=== PATIENT | female | born 2000 ===

== ENCOUNTER 2020-10-19 20:41 | Emergency (ER) | payer MEDICAID ==
[2020-10-19 20:52] VITALS: BP 135/98; PULSE 87
[2020-10-19 21:28] LABS: ANION GAP 18.4 mEq/L (7-13); CHLORIDE,CL 103 mmol/L (98-107); SODIUM,NA 137 mmol/L (136-145)
--- NOTE | 2020-10-19 21:39 | EDM.PDOC ---
ED HPI GENERAL MEDICAL PROBLEM - General Chief Complaint: Back Pain or Injury Stated Complaint: AMBULANCE Time Seen by Provider: 10/19/20 20:45 Source of Information: Reports: Patient History Limitations: Reports: No Limitations - History of Present Illness INITIAL COMMENTS - FREE TEXT/NARRATIVE: ED via [facility] with report of slipping from bathchir to floor, Patient and healthcare or medical denied loss of consciousness. Witness ed fall. [facility] initially c/o back and rib pain. Patient from Detention. - Related Data Allergies Allergy/AdvReac Type Severity Reaction Status Date / Time Dairy Products Allergy Diarrhea Verified 11/23/14 17:02 Latex, Natural Rubber Allergy Rash Verified 11/23/14 17:02 high fructose corn syrup Allergy Diarrhea Uncoded 11/23/14 17:02 Home Meds: Home Meds Naproxen 250 mg PO TID PRN 11/23/14 [History] Calcium Carbonate [Calcium] 600 mg PO 10/19/20 [History] Cholecalciferol (Vitamin D3) [Vitamin D3] 2,000 unit PO 10/19/20 [History] FLUoxetine [PROzac] 40 mg PO DAILY 10/19/20 [History] Ferrous Sulfate 325 mg PO 10/19/20 [History] norethindrone ac-eth estradioL [Loestrin 21 1.5-30 Tablet] 10/19/20 [History] polyethylene glycoL 3350 [MiraLAX] 17 gm PO DAILY 10/19/20 [History] Past Medical History HEENT History: Reports: Impaired Vision Other Respiratory History: brain injury at 18 months. Other Musculoskeletal History: alot of orthopedic problems. has had hip surgery, heel surgery and needs knee surgery Neurological History: Reports: Brain Injury, Cerebral Palsy Other Neuro History: paralysis left side. Other Immunologic History: misses alot of school with respiratory illnesses Social & Family History - Family History Family Medical History: No Pertinent Family History - Tobacco Use Tobacco Use Status *Q: Never Tobacco User Second Hand Smoke Exposure: No - Caffeine Use Caffeine Use: Reports: None - Recreational Drug Use Recreational Drug Use: No ED ROS GENERAL - Review of Systems Review Of Systems: Comprehensive ROS is negative, except as noted in HPI. ED EXAM,LOWER BACK PAIN/INJURY - Physical Exam Exam: See Below Exam Limited By: No Limitations General Appearance: Alert, No Apparent Distress, Obese Eye Exam: Bilateral Eye: EOMI, PERRL Ears: Normal External Exam, Hearing Grossly Normal Nose: Normal Inspection Throat/Mouth: Normal Inspection Head: Atraumatic, Normocephalic Neck: Normal Inspection Respiratory/Chest: No Respiratory Distress, Lungs Clear, Normal Breath Sounds Cardiovascular: Normal Peripheral Pulses, Regular Rate, Rhythm GI/Abdominal: Normal Bowel Sounds, Soft Back Exam: Other (generalized tenderness deep palpation) Neurological: Alert, Normal Mood/Affect, Other (baseline defecits unchanged. TX's with amna lift. Developmental delay). No: Oriented x 3 (person palce) Psychiatric: Normal Affect Skin Exam: Warm, Dry Course - Vital Signs Last Recorded V/S: Last Vital Signs Temp 97.6 F 10/19/20 20:44 Pulse 87 10/19/20 20:44 Resp 22 H 10/19/20 20:44 BP 135/98 H 10/19/20 20:44 Pulse Ox 98 10/19/20 20:44 - Orders/Labs/Meds Labs: Laboratory Tests 10/19/20 10/19/20 Range/Units 21:00 21:00 WBC 15.4 H (5.0-10.0) 10^3/uL RBC 5.27 (4.2-5.4) 10^6/uL Hgb 15.1 (12.0-16.0) g/dL Hct 45.1 (37.0-47.0) % MCV 85.6 (80-100) fL MCH 28.7 (27.0-34.0) pg MCHC 33.5 (33.0-35.0) g/dL Plt Count 271 (150-450) 10^3/uL Neut % (Auto) 67.4 (42.2-75.2) % Lymph % (Auto) 24.0 (20.5-50.1) % Union % (Auto) 6.7 (2-8) % Eos % (Auto) 1.7 (1.0-3.0) % Baso % (Auto) 0.2 (0.0-1.0) % Sodium 137 (136-145) mmol/L Potassium 4.4 (3.5-5.1) mmol/L Chloride 103 (98-107) mmol/L Carbon Dioxide 20 L (21-32) mmol/L Anion Gap 18.4 H (7-13) mEq/L BUN 9 (7-18) mg/dL Creatinine 0.45 L (0.55-1.02) mg/dL Est Cr Clr Drug Dosing TNP Estimated GFR (MDRD) > 60 BUN/Creatinine Ratio 20.0 (No establ ref range) Glucose 88 (70-99) mg/dL Calcium 8.4 L (8.5-10.1) mg/dL Total Bilirubin 0.3 (0.2-1.0) mg/dL AST 40 H (15-37) U/L ALT 85 H (14-59) U/L Alkaline Phosphatase 95 (46-116) U/L Total Protein 7.3 (6.4-8.2) g/dL Albumin 2.9 L (3.4-5.0) g/dL Globulin 4.4 Albumin/Globulin Ratio 0.66 HCG, Qual Negative Departure - Departure Time of Disposition: 22:51 Disposition: Home, Self-Care 01 Condition: Good Clinical Impression: Muscle strain Fall Qualifiers: Encounter type: initial encounter Qualified Code(s): W19.XXXA - Unspecified fall, initial encounter - Discharge Information *PRESCRIPTION DRUG MONITORING PROGRAM REVIEWED*: No *COPY OF PRESCRIPTION DRUG MONITORING REPORT IN PATIENT ROGER: No Instructions: Muscle Strain Referrals: Samantha Benjamin NP [Primary Care Provider] - Forms: ED Department Discharge Additional Instructions: tylenol 500mg every 4 hours as needed for discomfort Resume home medications follow up if change in symptoms diet as tolerated Sepsis Event Note (ED) - Evaluation Sepsis Screening Result: No Definite Risk
--- NOTE | 2020-10-19 22:30 | CT ---
PROCEDURE INFORMATION: Exam: CT Cervical Spine Without Contrast Exam date and time: 10/19/2020 9:47 PM Age: 19 years old Clinical indication: Other: Fall/pain; Additional info: Fell off bath chair, C/O pain TECHNIQUE: Imaging protocol: Computed tomography images of the cervical spine without contrast. Radiation optimization: All CT scans at this facility use at least one of these dose optimization techniques: automated exposure control; mA and/or kV adjustment per patient size (includes targeted exams where dose is matched to clinical indication); or iterative reconstruction. COMPARISON: CT Head wo Cont 04/17/2014 9:57 PM FINDINGS: Bones/joints: There is normal vertebral body alignment. There are normal vertebral body heights. The dens is intact. The lateral masses of C1 are symmetric. No fracture. Discs/Spinal canal/Neural foramina: Craniocervical articulation is normal. Atlantodental interval and prevertebral soft tissues are normal. Disc spaces are symmetric and maintained. Lungs: Lung apices are normal. Soft tissues: Unremarkable. IMPRESSION: No fracture.
--- NOTE | 2020-10-19 22:31 | CT ---
PROCEDURE INFORMATION: Exam: CT Head Without Contrast Exam date and time: 10/19/2020 9:47 PM Age: 19 years old Clinical indication: Other: Fall/pain; Additional info: Fell off bath chair, C/O pain TECHNIQUE: Imaging protocol: Computed tomography of the head without contrast. Radiation optimization: All CT scans at this facility use at least one of these dose optimization techniques: automated exposure control; mA and/or kV adjustment per patient size (includes targeted exams where dose is matched to clinical indication); or iterative reconstruction. COMPARISON: CT Head wo Cont 04/17/2014 9:57 PM FINDINGS: Brain: Stable right MCA distribution encephalomalacia. No acute infarct or hemorrhage. Cerebral ventricles: No ventriculomegaly. Paranasal sinuses: Paranasal sinuses are clear. No air-fluid level. Mastoid air cells: Visualized mastoid air cells are clear. Bones/joints: No calvarial or skull base fracture. Soft tissues: Unremarkable. IMPRESSION: 1. No calvarial or skull base fracture. 2. No acute infarct or hemorrhage.
--- NOTE | 2020-10-19 22:36 | CT ---
PROCEDURE INFORMATION: Exam: CT Lumbar Spine Without Contrast Exam date and time: 10/19/2020 9:47 PM Age: 19 years old Clinical indication: Other: Fall/pain; Additional info: Fell off bath chair, C/O pain TECHNIQUE: Imaging protocol: Computed tomography images of the lumbar spine without contrast. Radiation optimization: All CT scans at this facility use at least one of these dose optimization techniques: automated exposure control; mA and/or kV adjustment per patient size (includes targeted exams where dose is matched to clinical indication); or iterative reconstruction. COMPARISON: No relevant prior studies available. FINDINGS: Vertebrae: No acute fracture. Normal alignment. L1-L2: No significant disc protrusion. No severe spinal canal stenosis. No significant neural foraminal narrowing. L2-L3: No significant disc protrusion. No severe spinal canal stenosis. No significant neural foraminal narrowing. L3-L4: No significant disc protrusion. No severe spinal canal stenosis. No significant neural foraminal narrowing. L4-L5: No significant disc protrusion. No severe spinal canal stenosis. No significant neural foraminal narrowing. L5-S1: No significant disc protrusion. No severe spinal canal stenosis. No significant neural foraminal narrowing. Soft tissues: Unremarkable. IMPRESSION: Unremarkable spine.
--- NOTE | 2020-10-19 22:37 | CT ---
PROCEDURE INFORMATION: Exam: CT Thoracic Spine Without Contrast Exam date and time: 10/19/2020 9:47 PM Age: 19 years old Clinical indication: Other: Fall/pain; Additional info: Fell off bath chair, C/O pain TECHNIQUE: Imaging protocol: Computed tomography images of the thoracic spine without contrast. Radiation optimization: All CT scans at this facility use at least one of these dose optimization techniques: automated exposure control; mA and/or kV adjustment per patient size (includes targeted exams where dose is matched to clinical indication); or iterative reconstruction. COMPARISON: No relevant prior studies available. FINDINGS: Vertebrae: No acute fracture. Normal alignment. Discs/Spinal canal/Neural foramina: No significant disc protrusion. No severe spinal canal stenosis. No significant neural foraminal narrowing. Soft tissues: Unremarkable. IMPRESSION: Unremarkable CT Spine.
== END 2020-10-19 23:09 | disposition home or self-care (01) ==
LOC: DL.ED 20:41
DX: S29.011A Strain of muscle and tendon of front wall of thorax, initial encounter (principal); S39.012A Strain of muscle, fascia and tendon of lower back, initial encounter; S29.012A Strain of muscle and tendon of back wall of thorax, initial encounter; Z91.011 Allergy to milk products; Z91.040 Latex allergy status; Z91.018 Allergy to other foods; Z79.899 Other long term (current) drug therapy; W07.XXXA Fall from chair, initial encounter; Y92.129 Unspecified place in nursing home as the place of occurrence of the external cause
CPT/HCPCS: 36415; 70450; 72125; 72128; 72131; 80053; 84703; 85025; 99284-25

== ENCOUNTER 2023-02-01 14:28 | Emergency (ER) | payer MEDICAID, OTHER ==
[2023-02-01 14:53] VITALS: BP 160/118; PULSE 82
[2023-02-01] MEDS ORDERED: Lactated Ringers 1,000 ML IV ONE (17:00)
[2023-02-01] MEDS ORDERED: Ketorolac 30 MG/ML SDV IVPUSH ONE (17:51)
== END 2023-02-01 18:45 ==
LOC: DL.ED 14:28
DX: K80.50 Calculus of bile duct without cholangitis or cholecystitis without obstruction (principal); Z79.899 Other long term (current) drug therapy; Z88.1 Allergy status to other antibiotic agents; Z91.011 Allergy to milk products; Z91.040 Latex allergy status; Z88.8 Allergy status to other drugs, medicaments and biological substances
CPT/HCPCS: 76705; 96361; 96374; 99285; J1885; J7120; 99284